=== PATIENT | female | born 1940 | race Caucasian/White ===

== ENCOUNTER → 2016-09-25 | Day surgery (SDC) | payer MEDICARE, BC ==
[~2016-09-25] MED LIST: ACETAMINOPHEN 1000 MG/100 ML VIAL IV ONE; BUPIVACAINE/EPINEPHRINE 0.25% 50 ML VIAL ONE; BUPIVACAINE/EPINEPHRINE 0.5% PF 30 ML VIAL ONE; ISOSULFAN BLUE 50 MG/5 ML VIAL SQ ONE; LIDOCAINE 1.5%/EPINEPHrine 1:200,000 PF SOLN 30 ML AMP ONE; MEPERIDINE HCL 25 MG/ML VIAL ONE; MIDAZOLAM HCL 2 MG/2 ML VIAL ONE; MORPHINE SULFATE 4 MG/ML INJ ONE; ONDANSETRON HCL 4 MG/2 ML VIAL IV PUSH ONE; PROPOFOL 200 MG/20 ML AMP IV ONE; ceFAZolin 2 GM PREMIX 50 ML ONE
--- NOTE | 2016-09-26 12:54 | TN ---
cc: LOTTIE TRISTAN MD DATE OF SURGERY 09/25/2016 PREOPERATIVE DIAGNOSIS Left breast ductal carcinoma in situ. POSTOPERATIVE DIAGNOSIS Left breast ductal carcinoma in situ. PROCEDURE Left breast needle-localized lumpectomy and [place] lymph node biopsy. SURGEON Toni CARDIAC CATH TECHNOLOGIST Staff ESTIMATED BLOOD LOSS 10 cc ANESTHESIA General anesthesia via LMA COMPLICATIONS No apparent complications SPECIMENS One sentinel node with a count 3628. There was left breast lumpectomy specimen labeled with short stitch superior and long stitch lateral. There was a new deep margin, a new lateral margin and a new inferior margin as well. INDICATIONS Mrs. Barillas is a 75-year-old female who on screening mammogram was found to have left breast suspicious microcalcifications. 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 After multiple discussions with the patient and her as well as her consultation with radiation oncology, she elected to proceed with lumpectomy. She did desire to go ahead and proceed with sentinel lymph node biopsy due to 10-15% chance that she could have invasive cancer in the surgical specimen and she strongly wants to avoid a second operation. She underwent preoperative needle localization and lymphoscintigraphy. OPERATIVE FINDINGS The patient had a single sentinel lymph node identified and removed with a count of 3628. The lumpectomy was uncomplicated. The clip was present in the specimen after evaluated in radiology. I did proceed to remove a new lateral deep and inferior margin. PROCEDURE IN DETAIL The patient was taken to the operating room and placed in a supine position. General anesthesia via LMA was induced. The left breast and axilla was prepped and draped in the usual sterile fashion. She received appropriate preoperative antibiotics. Local anesthetic was injected in the skin and subcutaneous tissue in the left axilla and an approximately 3 cm incision was made. Dissection was carried out with electrocautery down through the clavipectoral fascia. The lymphoscintigraphy probe was used to estimate the location of the sentinel lymph node as well as basing off of preoperative markings from radiology. After careful dissection bluntly and with electrocautery, as well as repeated use of the lymphoscintigraphy probe, I did identify a single sentinel lymph node with a count of 3628. The remaining axilla had a background count well below 10% of this number. Hemostasis was achieved. I interrupted as few lymphatic channels as possible. The incision was then closed with deep dermal 3-0 Vicryl sutures and a subcuticular 4-0 Monocryl as well as Dermabond. Attention was turned to the left breast. The localization wire was a few centimeters superior to the nipple and directed primarily inferiorly, therefore I proceeded with a curvilinear incision along the superior areola. Dissection was carried out through a few millimeters of subcutaneous tissue and a deep flap was created towards the localization needle. The needle was cut at the skin and then brought out through the incision. I proceeded to perform lumpectomy around the area of the gaby on the localization wire which was at the same place as the clip. I used electrocautery and sharp dissection. The specimen was marked with a short stitch superiorly, a long stitch lateral and sent to radiology. I did think there were somewhat close margins and therefore took a new lateral margin which was marked, a new inferior margin which was marked and a new deep margin which was marked. The mammogram identified the clipped in the specimen which was sent to radiology. Hemostasis was achieved in the lumpectomy cavity. The incision was closed with deep dermal 3-0 Vicryl and subcuticular 4-0 Monocryl, as well as Mastisol and Steri-Strips. The patient tolerated the procedure well and was extubated and taken to PACU in stable condition. MD ARSENIO Bustos/MERRICK /12:27 PM /12:40 PM
== END | disposition home or self-care (01) ==
LOC: ESDC 08:22
PROVIDERS: ATTEND Surgery
DX: D05.12 Intraductal carcinoma in situ of left breast (principal)
CPT/HCPCS: 00400; 01610; 19125; 38525; 88305; 88307; J0131; J0690; J2175; J2250; J2270; J2405; J3010; Q9968